=== PATIENT | female | born 2000 | race African-American/Black ===

== ENCOUNTER 2018-11-25 15:57 | Emergency (ER) | payer OTHER, MEDICAID ==
--- NOTE | 2018-11-25 16:45 | ED ---
Abdominal Pain/Female - HPI Summary HPI Summary: 18 year old F presenting to [facility] from [facility] complains of worsening waxing and waning epigastric abdominal pain since Wednesday11/20/18. Patient states that the pain started as dull and has progressed to sharp and stabbing. The patient rates the pain 8/10 in severity. Patient reports decreased appetite since Wednesday11/23/18. Patient denies nausea, dysuria, abnormal bowel movements. Symptoms aggravated by walking around and walking too fast. Symptoms alleviated by nothing. Patient was seen by Dr. Marcelino at [facility] and referred to ED. Patient states she was diagnosed with diabetes in 2012 for which she takes metformin. - History of Current Complaint Chief Complaint: EDAbdPain Stated Complaint: ABDOMINAL AND BACK PAIN PER PT Time Seen by Provider: 11/25/18 16:23 Hx Obtained From: Patient Onset/Duration: Lasting Days - 5, Still Present Severity Currently: Severe Pain Intensity: 8 Pain Scale Used: 0-10 Numeric Location: Epigastric Character: Sharp, Dull Aggravating Factor(s): Other: - walking around and walking too fast Alleviating Factor(s): Nothing Associated Signs and Symptoms: Positive: Negative - nausea, dysuria, abnormal bowel movements, Other: - decreased appetite Allergies/Adverse Reactions: Allergies Allergy/AdvReac Type Severity Reaction Status Date / Time No Known Allergies Allergy Verified 11/25/18 19:16 Home Medications: Home Medications Ranitidine TAB (NF) [Zantac TAB (NF)] 150 mg PO BID 11/25/18 [History Confirmed 11/25/18] metFORMIN* [Glucophage 850 MG TAB *] 850 mg PO BID 11/25/18 [History Confirmed 11/25/18] PMH/Surg Hx/FS Hx/Imm Hx Endocrine/Hematology History: Reports: Hx Diabetes Musculoskeletal History: Reports: 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 Negative: Nausea Negative: dysuria All Other Systems Reviewed And Are Negative: Yes Physical Exam - Summary Physical Exam Summary: Appearance: The patient is well-nourished in no acute distress and in no acute pain. Skin: The skin is warm and dry, and skin color reflects adequate perfusion. HEENT: The head is normocephalic and atraumatic. The pupils are equal and reactive. The conjunctivae are clear and without drainage. Nares are patent and without drainage. Mouth reveals moist mucous membranes, and the throat is without erythema and exudate. The external ears are intact. The ear canals are patent and without drainage. The tympanic membranes are intact. Neck: The neck is supple with full range of motion and non-tender. There are no carotid bruits. There is no neck vein distension. Respiratory: Chest is non-tender. Lungs are clear to auscultation and breath sounds are symmetrical and equal. Cardiovascular: Heart is regular rate and rhythm. There is no murmur or rub auscultated. There is no peripheral edema and pulses are symmetrical and equal. Abdomen: The abdomen is soft. There is mild epigastric tenderness. There are normal bowel sounds heard in all four quadrants and there is no organomegaly palpated. Musculoskeletal: There is no back tenderness noted. Extremities are non-tender with full range of motion. There is good capillary refill. There is no peripheral edema or calf tenderness elicited. Neurological: Patient is alert and oriented to person, place and time. The patient has symmetrical motor strength in all four extremities. Cranial nerves are grossly intact. Deep tendon reflexes are symmetrical and equal in all four extremities. Psychiatric: The patient has an appropriate affect and does not exhibit any anxiety or depression. Triage Information Reviewed: Yes Vital Signs On Initial Exam: Initial Vitals Temp Pulse Resp BP Pulse Ox 97.9 F 100 20 128/78 98 11/25/18 16:00 11/25/18 16:00 11/25/18 16:00 11/25/18 16:00 11/25/18 16:00 Vital Signs Reviewed: Yes Diagnostics - Vital Signs Vital Signs Temp Pulse Resp BP Pulse Ox 11/25/18 16:00 97.9 F 100 20 128/78 98 - Laboratory Result Diagrams: 11/25/18 17:10 11/25/18 17:10 Lab Statement: Any lab studies that have been ordered have been reviewed, and results considered in the medical decision making process. - Ultrasound Gallbladder Ultrasound Interpretation Completed By: Radiologist Summary of Ultrasound Findings: 1. No acute findings. No shadowing gallstones. 2. Pancreas obscured by bowel gas. 3. Hepatic steatosis. 4. No hydronephrosis. Suboptimal visualization of lower pole of right kidney. 4. Limited study as above. ED physician has reviewed this report. Re-Evaluation - Re-Evaluation First Eval Re-Evaluation Time: 19:28 Comment: patient updated on plan of care Abdominal Pain Fem Course/Dx - Course Course Of Treatment: Ms. Brunson presented with about a week of waxing and waning epigastric pain. She went to [facility] services today and as she is diabetic and her fingersticks were reading high and was recommended she come to the emergency department. She had some mild epigastric tenderness as well as right upper quadrant tenderness. Labs were obtained and were unremarkable, she was nontoxic in appearance and her vitals were stable. I recommended that we treat her and have her follow-up but she requested an ultrasound. Ultrasound of her gallbladder was a reasonable test even though her labs were normal but did return negative. I recommended we give her some pain medicine but she left the department prior to receiving it. - Diagnoses Provider Diagnoses: Abdominal pain Discharge ED - Sign-Out/Discharge Documenting (check all that apply): Patient Departure - elopement Patient Received Moderate/Deep Sedation with Procedure: No - Discharge Plan Condition: Stable Disposition: ELOPEMENT Prescriptions: traMADol TAB* [Ultram*] 50 mg PO Q6HR PRN #20 tab MDD 4 PRN Reason: Pain Patient Education Materials: Abdominal Pain (ED) Referrals: [facility] [Outside] - 2 Days Additional Instructions: Follow up with [facility] in 2-3 days. RETURN TO EMERGENCY DEPARTMENT FOR NEW OR WORSENING SYMPTOMS. - Billing Disposition and Condition Condition: STABLE Disposition: Elopement - Attestation Statements Document Initiated by Scribe: Yes Documenting Scribe: Elodia Brewer Provider For Whom Scribe is Documenting (Include Credential): Javid Santiago MD Scribe Attestation: Elodia Jean, scribed for Javid Santiago MD on 11/25/18 at 2122. Scribe Documentation Reviewed: Yes Provider Attestation: The documentation as recorded by the scribe, Elodia Brewer accurately reflects the service I personally performed and the decisions made by me, Javid Santiago MD Status of Bernard Document: Viewed
[2018-11-25 17:25] LABS: ABS Eosinophils 0.1 10^3/ul (0-0.6); ABS Lymphocytes 1.9 10^3/ul (1.0-4.8); ABS Monocytes 0.4 10^3/ul (0-0.8); ABS Neutrophils 5.2 10^3/ul (1.5-7.7); Eosinophil % 1.3 %; Hematocrit 35 % (35-47); Hemoglobin 11.1 g/dL (12.0-16.0); Lymphocyte % 24.9 %; Mean Corpuscular HGB Conc 32 g/dL (31-36); Mean Corpuscular Hemoglobin 21 pg (27-31); Mean Corpuscular Volume 66 fL (80-97); Mean Platelet Volume 9.5 fL (7.4-10.4); Platelet Count 250 10^3/uL (150-450); Red Blood Count 5.33 10^6 /uL (3.70-4.87); Red Cell Distribution Width 18 % (10-15); White Blood Count 7.7 10^3/uL (3.5-10.8)
[2018-11-25 17:34] LABS: ALT 9 U/L (7-52); AST 12 U/L (13-39); Albumin 3.8 g/dL (3.2-5.2); Alkaline Phosphatase 62 U/L (34-104); Anion Gap 7 mmol/L (2-11); BUN/Creatinine Ratio 12.1 (8-20); Blood Urea Nitrogen 8 mg/dL (6-24); C Reactive Protein 33.72 mg/L (<8.01); CO2 Carbon Dioxide 27 mmol/L (22-32); Chloride 100 mmol/L (101-111); EGFR African American 138.2 (>60); EGFR Non-African American 114.2 (>60); Globulin 3.7 g/dL (2-4); Glucose 267 mg/dL (70-100); Potassium 3.7 mmol/L (3.5-5.0); Sodium 134 mmol/L (135-145); Total Protein 7.5 g/dL (6.4-8.9)
[2018-11-25 17:39] LABS: HCG Pregnancy < 0.60 mIU/mL
[2018-11-25 17:47] LABS: Microcytosis 2+
[2018-11-25 18:42] VITALS: BP 112/69
[2018-11-25 19:16] LABS: Urine Appearance Cloudy; Urine Bacteria 3+ (Absent); Urine Bilirubin Negative (Negative); Urine Blood 1+ (Negative); Urine Color Yellow; Urine Glucose 3+(>=500 mg/dL) (Negative); Urine Ketones 1+ (Negative); Urine Nitrite Negative (Negative); Urine Protein 1+(30 mg/dL) (Negative); Urine Red Blood Cell 3+(>10/hpf) (Absent); Urine Specific Gravity 1.026 (1.010-1.030); Urine Squamous Epithelial Cell Present (Absent); Urine Urobilinogen Negative (Negative); Urine White Blood Cell 3+(>20/hpf) (Absent)
[2018-11-25] MEDS ORDERED: traMADol TAB* 50 MG PO ONE (20:54)
== END 2018-11-25 20:57 | disposition left against medical advice (07) ==
LOC: ED 15:57
DX: R10.9 Unspecified abdominal pain (principal); E11.9 Type 2 diabetes mellitus without complications; K76.0 Fatty (change of) liver, not elsewhere classified; Z79.899 Other long term (current) drug therapy
CPT/HCPCS: 36415; 76705; 80053; 81003; 81015; 83605; 83690; 84702; 85025; 85060; 86140; 87086; 99283

== ENCOUNTER 2018-11-26 18:30 | Emergency (ER) | payer OTHER, MEDICAID ==
[2018-11-26] MEDS ORDERED: NS 0.9% 1000 ML** 1,000 ML IV ONE (19:24)
[2018-11-26] MEDS ORDERED: Ketorolac INJ* 15 MG/ML 1 ML VIAL IV ONE (19:24)
[2018-11-26] MEDS ORDERED: Ondansetron INJ* 2 MG/ML VIAL IV ONE (19:24)
[2018-11-26] MEDS ORDERED: Pantoprazole IV* 40 MG IV ONE (19:24)
--- NOTE | 2018-11-26 19:28 | ED ---
Abdominal Pain/Female - HPI Summary HPI Summary: The pt is a 18 yr old female presenting to [facility] c/o upper abd and epigastric pain beginning 1 week [employer]. She notes that she was on her menstrual period when the pain began but that it persisted after her period ended. The pain is constant but its severity fluctuates throughout the day. The abd pain also radiates to her back and she rates her current pain severity a 10/10. She was seen at [facility] yesterday and had a negative gallbladder workup, but notes that she is still in pain and has difficulty standing. She notes that sleeping and ibuprofen alleviate the pain and took one ibuprofen earlier today. Eating aggravates the pain and she notes that eating noodles earlier today worsened her symptoms. She also reports nausea but denies any vomiting, diarrhea, or dysuria. She has Hx of DM and Anemia. Home Medications Medication Instructions Recorded Confirmed Type Ranitidine TAB (NF) [Zantac TAB 150 mg PO BID 11/25/18 11/25/18 History (NF)] metFORMIN* [Glucophage 850 MG TAB 850 mg PO BID 11/25/18 11/25/18 History *] traMADol TAB* [Ultram*] 50 mg PO Q6HR PRN #20 tab MDD 4 11/25/18 Rx - History of Current Complaint Chief Complaint: EDAbdPain Stated Complaint: ABD PAIN PER PT Time Seen by Provider: 11/26/18 19:14 Hx Obtained From: Patient Hx Last Menstrual Period: 11/19/2018 Onset/Duration: Sudden Onset, Lasting Weeks, Still Present Timing: Constant Severity Initially: Severe Severity Currently: Severe Pain Intensity: 10 Pain Scale Used: 0-10 Numeric Location: Discrete At: RUQ, Discrete At: LUQ, Epigastric Radiates to: Back Aggravating Factor(s): Food Alleviating Factor(s): Other: - ibuprofen, sleep Associated Signs and Symptoms: Positive: Nausea, Other: - pos - abd pain, neg - dysuria. 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 Negative: Vomiting, Diarrhea Negative: dysuria All Other Systems Reviewed And Are Negative: Yes Physical Exam - Summary Physical Exam Summary: General: Well-developed, Well-nourished, Obese female. No acute distress. HEENT: Normocephalic, Atraumatic. Eyes: Conjuctiva normal, PERRL. Ears: TMs within normal limits. Nares: (-) discharge, (-) erythema. Oropharynx: Clear, mucous membranes moist, (-) exudates. Neck: Soft, FROM, (-) lymphadenopathy, (-) thyromegaly, (-) JVD. Cardiovascular: Normal sinus rhythm, (-) murmur. Lungs: Clear to auscultation bilaterally (-) wheezes, (-) rales, (-) rhonchi. Abdomen: Soft, mild tenderness in LUQ and RUQ, moderate tenderness in the epigastric region, non-distended, (-) organomegaly, normal bowel sounds. Back: (-) CVA tenderness Extremities: No edema. Skin: Warm, dry, (-) rash. Neuro: Alert and oriented x3, no focal deficits. Psychiatric: Mood normal, affect normal. Triage Information Reviewed: Yes Vital Signs On Initial Exam: Initial Vitals Temp Pulse Resp BP Pulse Ox 97.4 F 106 20 122/86 100 11/26/18 18:32 11/26/18 18:32 11/26/18 18:32 11/26/18 18:32 11/26/18 18:32 Vital Signs Reviewed: Yes Diagnostics - Vital Signs Vital Signs Temp Pulse Resp BP Pulse Ox 11/26/18 18:32 97.4 F 106 20 122/86 100 - Laboratory Result Diagrams: 11/26/18 19:34 11/26/18 19:34 Lab Statement: Any lab studies that have been ordered have been reviewed, and results considered in the medical decision making process. - CT CT A/P CT Interpretation Completed By: Radiologist Summary of CT Findings: Impression: Negative CT Abdomen/Pelvis. ED Physician has reviewed this report. Re-Evaluation - Re-Evaluation First Eval Re-Evaluation Time: 22:00 Comment: I have discussed results with the patient and (Sx) is resolved. Discussed symptoms that warrant immediate return to ED. Abdominal Pain Fem Course/Dx - Course Course Of Treatment: The pt is a 18 yr old female presenting to [facility] c/o upper abd and epigastric pain beginning 1 week [employer]. She also reports nausea but denies any vomiting, diarrhea, or dysuria. Test results normal except for RBC 5.28, Hgb 11.2, MCV 66, MCH 21, RDW 18, Sodium 133, Chloride 100, Glucose 329, AST 12, CRP 47.04, Lipase 83, 1+ Urine Ketones, 2+ Ur Leukocyte Esterase, 1+ Urine WBC, Ur Squamous Epith Cells present, and 3+ Urine Glucose. A CT A/P reveals: negative CT Abdomen/Pelvis. In the ED course pt was given 1000 mls fluids IV, 15 mg Toradol IV, 4 mg Zofran IV, 141 ml Visipaque IV, and 40 mg Protonix IV. Final Dx is epigastric pain. Pt will be discharged home with PCP follow up. Pt is agreeable with this plan. - Diagnoses Provider Diagnoses: Epigastric pain Discharge ED - Sign-Out/Discharge Documenting (check all that apply): Patient Departure - discharge Patient Received Moderate/Deep Sedation with Procedure: No - Discharge Plan Condition: Stable Disposition: HOME Prescriptions: Omeprazole 20 mg PO DAILY 30 Days #30 capsule. Patient Education Materials: Epigastric Pain (ED) Referrals: [facility] [Outside] - 3 Days Additional Instructions: Please take 2 Ibuprofen 3 times per day with food for pain management. Please take your Omeprazole once daily in the morning prior to any food. Please follow up with your primary care physician within three days. Please return to ED for any new or worsening symptoms. - Billing Disposition and Condition Condition: STABLE Disposition: Home - Attestation Statements Document Initiated by Scribe: Yes Documenting Scribe: Vazquez Fernández Provider For Whom Scribe is Documenting (Include Credential): Radhika Chahal MD Scribe Attestation: Vazquez Jean, scribed for Radhika Chahal MD on 11/26/18 at 2242. Scribe Documentation Reviewed: Yes Provider Attestation: The documentation as recorded by the scribe, Vazquez Fernández accurately reflects the service I personally performed and the decisions made by me, Radhika Chahal MD Status of Scribe Document: Viewed
[2018-11-26 19:46] LABS: ABS Eosinophils 0.1 10^3/ul (0-0.6); ABS Lymphocytes 1.8 10^3/ul (1.0-4.8); ABS Monocytes 0.6 10^3/ul (0-0.8); ABS Neutrophils 6.8 10^3/ul (1.5-7.7); Eosinophil % 1.2 %; Hematocrit 35 % (35-47); Hemoglobin 11.2 g/dL (12.0-16.0); Lymphocyte % 18.9 %; Mean Corpuscular HGB Conc 32 g/dL (31-36); Mean Corpuscular Hemoglobin 21 pg (27-31); Mean Corpuscular Volume 66 fL (80-97); Mean Platelet Volume 9.6 fL (7.4-10.4); Nucleated Red Blood Cells % 0.1; Platelet Count 246 10^3/uL (150-450); Red Blood Count 5.28 10^6 /uL (3.70-4.87); Red Cell Distribution Width 18 % (10-15); White Blood Count 9.3 10^3/uL (3.5-10.8)
[2018-11-26 19:58] LABS: ALT 9 U/L (7-52); AST 12 U/L (13-39); Albumin 3.8 g/dL (3.2-5.2); Albumin/Globulin Ratio 1.1 (1-3); Alkaline Phosphatase 60 U/L (34-104); Amylase 51 U/L (29-103); Anion Gap 7 mmol/L (2-11); Blood Urea Nitrogen 9 mg/dL (6-24); C Reactive Protein 47.04 mg/L (<8.01); CO2 Carbon Dioxide 26 mmol/L (22-32); Chloride 100 mmol/L (101-111); EGFR African American 131.2 (>60); EGFR Non-African American 108.5 (>60); Globulin 3.6 g/dL (2-4); Glucose 329 mg/dL (70-100); Potassium 3.8 mmol/L (3.5-5.0); Sodium 133 mmol/L (135-145); Total Protein 7.4 g/dL (6.4-8.9)
[2018-11-26 20:04] LABS: HCG Pregnancy < 0.60 mIU/mL
[2018-11-26] MEDS ORDERED: Iodixanol* (CONTRAST) 320 MG/ML 100 ML SDV IV ONE (20:08)
[2018-11-26 20:30] LABS: Urine Appearance Cloudy; Urine Bacteria 1+ (Absent); Urine Bilirubin Negative (Negative); Urine Blood Negative (Negative); Urine Color Yellow; Urine Glucose 3+(>=500 mg/dL) (Negative); Urine Ketones 1+ (Negative); Urine Nitrite Negative (Negative); Urine Protein Negative (Negative); Urine Red Blood Cell Trace(0-2/hpf) (Absent); Urine Specific Gravity 1.013 (1.010-1.030); Urine Squamous Epithelial Cell Present (Absent); Urine Urobilinogen Negative (Negative); Urine White Blood Cell 1+(6-10/hpf) (Absent)
[2018-11-26 23:27] VITALS: BP 110/79
== END 2018-11-26 23:00 | disposition home or self-care (01) ==
LOC: ED 18:30
DX: R10.13 Epigastric pain (principal); Z79.899 Other long term (current) drug therapy
CPT/HCPCS: 36415; 74177; 80053; 81003; 81015; 82150; 83605; 83690; 84702; 85025; 86140; 87086; 96361; 96374; 96375; 99284; J1885; J2405; Q9967

== ENCOUNTER 2018-11-27 11:53 | Emergency (ER) | payer OTHER, MEDICAID ==
--- NOTE | 2018-11-27 12:02 | ED ---
HPI Chest Pain - HPI Summary HPI Summary: This pt is a 18 Y/O F presenting to [facility] with a CC of chest pain. She states that she started having symptoms last week on 11/20/18. She states that she had back pain that radiated into her abdomen and was present in the ED for a possible gallbladder infection. She states that the pain was worse yesterday and is described as sharp. She states that the pain is located in her left upper quadrant and her left anterior chest. She states that when she was brushing her teeth this morning she thought she coughed up blood. She states that she has increased pain with movement. She denies any fevers, SOB, N/V, new edema, and headaches. She states the pain is worse after eating, relieved with intermittent movement. She has a PMHx of DM and takes metformin which she started one week ago. Patient states the pain started before taking metformin. - History of Current Complaint Chief Complaint: EDChestPainROMI Hx Obtained From: Patient Hx Last Menstrual Period: 11/19/2018 Onset/Duration: Started Weeks Ago - 1, Still Present, Worse Since - 11/26/18 Timing: Constant Initial Severity: Mild Current Severity: Moderate Pain Intensity: 5 Pain Scale Used: 0-10 Numeric Chest Pain Location: Left Anterior Chest Pain Radiates: Yes Chest Pain Radiates To:: Other - LUQ of abdomen Character: Sharp/Stabbing Aggravating Factor(s): Nothing Alleviating Factor(s): Nothing Associated Signs and Symptoms: Positive: Chest Pain - LA, Hemoptysis, Abdominal Pain - LUQ. 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 Negative: Shortness Of Breath Positive: Abdominal Pain - LUQ. Negative: Vomiting, Nausea Negative: Edema Negative: Headache All Other Systems Reviewed And Are Negative: Yes Physical Exam - Summary Physical Exam Summary: Constitutional: Well-developed, obese, Alert. (-) Distressed Skin: Warm, Dry HENT: Normocephalic; Atraumatic Eyes: Conjunctiva normal Neck: Musculoskeletal ROM normal neck. (-) JVD, (-) Stridor, (-) Nuchal rigidity Cardio: Rhythm regular, rate normal, Heart sounds normal; Intact distal pulses; Radial pulses are 2+ and symmetric. (-) Murmur Pulmonary/Chest wall: Effort normal. (-) Respiratory distress, (-) Wheezes, (-) Rales Abd: Soft, (-) tenderness, (-) Distension, (-) Guarding, (-) Rebound Musculoskeletal: (-) Edema Lymph: (-) Cervical adenopathy Neuro: Alert, Oriented x3 Psych: Mood and affect Normal Triage Information Reviewed: Yes Vital Signs On Initial Exam: Vital Signs (72 hours) 11/27/18 12:01 Temperature 97.7 F Pulse Rate 105 Respiratory 18 Rate Blood Pressure 140/67 (mmHg) O2 Sat by Pulse 100 Oximetry Vital Signs Reviewed: Yes Diagnostics - Laboratory Result Diagrams: 11/27/18 12:25 11/27/18 12:25 Lab Statement: Any lab studies that have been ordered have been reviewed, and results considered in the medical decision making process. - Radiology CXR Radiology Interpretation Completed By: Radiologist Summary of Radiographic Findings: No evidence for intrathoracic diseases. ED physician has reviewed this report. - EKG 1157 Cardiac Rate: NL - 99 BPM EKG Rhythm: Sinus Rhythm ST Segment: Normal Ectopy: None Summary of EKG Findings: An EKG at 1157 reveals normal sinus rhythm 99 BPM, nml axis, nml intervals. No STEMI. No acute changes. Interpreted by Dr. Rojas at 1159 11/27/18. Re-Evaluation - Re-Evaluation First Eval Re-Evaluation Time: 13:26 Change: Unchanged Comment: Pt is still compalaining of pain. She will be administered Scurafate. Second Eval Re-Evaluation Time: 02:45 Comment: Patient feeling improved after medications. D/w her normal results and that shelli we dont have a cause for her pain, there is not an emergent workup needed. She was given GI follow up. NAD on discharge. Chest Pain Course/Dx - Course Course Of Treatment: 18-year-old female with a history of diabetes on metformin presents with worsening abdominal pain for 1 week. - Work up so far includes negative RUQ ultrasound without gallstones/CBD dilation. Negative CT of the abdomen and pelvis 1 day ago. Patient reports persistent pain, including lower chest wall pain as well as cough. No chest x-ray, d-dimer to rule out PE (Well' s low risk). Unclear source of abdominal pain. DDx includes pancreatitis, GERD , renal stone, Cholecystitis, Less likely SBO, ectopic, PID, ovarian torsion, fibroids. Exam relatively unremarkable today, no rigidity or suggestions of acute surgical abd. Pt with negative Durham's on exam. Lipase to evaluate for pancreatitis. Will obtain cbc to assess for underlying infection. Neg preg test yesterday. Less likely ovarian torsion given location of pain and no focal TTP on exam. Pt denies pelvic pain and vaginal discharge, also with no fever, so less likely PID. Will obtain UA to assess for UTI. Will continue to monitor - Diagnoses Provider Diagnoses: Abdominal pain, Chest pain Discharge ED - Sign-Out/Discharge Documenting (check all that apply): Patient Departure - discharge Patient Received Moderate/Deep Sedation with Procedure: No - Discharge Plan Condition: Stable Disposition: HOME Prescriptions: traMADol TAB* [Ultram*] 25 mg PO Q8H PRN 2 Days #6 tab MDD 4 PRN Reason: Pain - Severe Patient Education Materials: Acute Abdominal Pain (ED) Referrals: Henry Morgan MD [Medical Doctor] - 1 Week Additional Instructions: You were seen in the emergency department for abdominal and chest pain. Your labs did not suggest any abnormalities of your gallbladder, chest x-ray is normal, your EKG was normal. Your lab test for blood clots was negative. Please follow up with GI. If any studies were not completed at the time of discharge you will be called with the relevant results. Please follow up with your primary care doctor in next 2-3 days and return to emergency department for worsening or concerning symptoms. It was a pleasure taking care of you today. - Billing Disposition and Condition Condition: STABLE Disposition: Home - Attestation Statements Document Initiated by Scribe: Yes Documenting Scribe: Chase Canela Provider For Whom Marielosibe is Documenting (Include Credential): Evelyn Rojas MD Scribe Attestation: IChase, scribed for Evelyn Rojas MD on 11/27/18 at 1514. Scribe Documentation Reviewed: Yes Provider Attestation: The documentation as recorded by the Chase fagan accurately reflects the service I personally performed and the decisions made by , Evelyn Rojas MD Status of Scribe Document: Viewed
[2018-11-27 12:36] LABS: ABS Basophils 0.1 10^3/ul (0-0.2); ABS Eosinophils 0.1 10^3/ul (0-0.6); ABS Lymphocytes 1.6 10^3/ul (1.0-4.8); ABS Monocytes 0.5 10^3/ul (0-0.8); Hematocrit 35 % (35-47); Hemoglobin 11.1 g/dL (12.0-16.0); Lymphocyte % 18.8 %; Mean Corpuscular HGB Conc 31 g/dL (31-36); Mean Corpuscular Hemoglobin 21 pg (27-31); Mean Corpuscular Volume 66 fL (80-97); Mean Platelet Volume 9.3 fL (7.4-10.4); Nucleated Red Blood Cells % 0.1; Platelet Count 257 10^3/uL (150-450); Red Blood Count 5.33 10^6 /uL (3.70-4.87); Red Cell Distribution Width 18 % (10-15); White Blood Count 8.2 10^3/uL (3.5-10.8)
[2018-11-27 12:39] LABS: INR 1.19 (0.82-1.09)
[2018-11-27] MEDS ORDERED: Lidocaine 2% VISCOUS* 15 ML UDC PO ONE (12:40)
[2018-11-27] MEDS ORDERED: Al Hydrox/Mg Hydrox/Simet LIQ* 30 ML UDC PO ONE (12:40)
[2018-11-27 12:51] LABS: Albumin 3.8 g/dL (3.2-5.2); Albumin/Globulin Ratio 1.1 (1-3); BUN/Creatinine Ratio 10.9 (8-20); Calcium 8.9 mg/dL (8.6-10.3); EGFR African American 143.1 (>60); EGFR Non-African American 118.3 (>60); Globulin 3.6 g/dL (2-4); Potassium 3.9 mmol/L (3.5-5.0); Total Bilirubin 0.4 mg/dL (0.2-1.0); Total Protein 7.4 g/dL (6.4-8.9)
[2018-11-27] MEDS ORDERED: Dicyclomine CAP* 10 MG PO ONE (13:08)
[2018-11-27] MEDS ORDERED: traMADol TAB* 50 MG PO ONE ×2 (13:47→14:48)
[2018-11-27] MEDS ORDERED: Sucralfate SUSP 1 GM/10 ml 10 ML UDC PO SCH (14:00)
[2018-11-27 14:58] VITALS: BP 138/72
== END 2018-11-27 14:57 | disposition home or self-care (01) ==
LOC: ED 11:53
DX: R07.9 Chest pain, unspecified (principal); R10.9 Unspecified abdominal pain; E11.9 Type 2 diabetes mellitus without complications; Z79.84 Long term (current) use of oral hypoglycemic drugs; Z79.899 Other long term (current) drug therapy
CPT/HCPCS: 36415; 71046; 80053; 83690; 84484; 85025; 85379; 85610; 93005; 99282; A9270-GY

== ENCOUNTER 2018-11-30 16:48 | Observation (INO) | payer OTHER, MEDICAID ==
--- NOTE | 2018-11-30 18:42 | ED ---
Abdominal Pain/Female - HPI Summary HPI Summary: Patient complains of epigastric pain, N/V, unable to eat or drink in 5 days, no bowel movement in 4 days. Patient has history of ulcer. Waiting on appointment for GI in 2 weeks. This is patient's fourth visit in 5 days for same symptoms. Patient states GI cocktail caused more pain on last visit. Patient throws up after sucralfate. Patient states she throws up after by mouth omeprazole. Denies fever, cough, sore throat, CP, SOB, diarrhea, urine symptoms, vaginal symptoms. Denies medical history except for ulcer disease. Abdominal surgical history is none. - History of Current Complaint Chief Complaint: EDAbdPain Stated Complaint: ABDOMINAL PAIN PER PT Time Seen by Provider: 11/30/18 18:38 Hx Obtained From: Patient Hx Last Menstrual Period: 11/19/2018 Onset/Duration: Gradual Onset, Lasting Days Timing: Constant Severity Initially: Severe Severity Currently: Severe Pain Intensity: 8 Pain Scale Used: 0-10 Numeric Location: Discrete At: RUQ, Epigastric Radiates: No Character: Sharp, Burning Aggravating Factor(s): Food Alleviating Factor(s): Nothing Associated Signs and Symptoms: Positive: Decreased Appetite, Nausea, Vomiting Allergies/Adverse Reactions: Allergies Allergy/AdvReac Type Severity Reaction Status Date / Time No Known Allergies Allergy Verified 11/26/18 18:35 Home Medications: Home Medications metFORMIN* [Glucophage 850 MG TAB *] 850 mg PO BID 11/30/18 [History Confirmed 11/30/18] PMH/Surg Hx/FS Hx/Imm Hx Endocrine/Hematology History: Reports: Hx Diabetes Cardiovascular History: Denies: Hx Pacemaker/ICD History: Denies: Hx Dialysis Musculoskeletal History: Reports: Other Musculoskeletal History - [place]'s disease left leg Sensory History: Denies: Hx Eye Prosthesis Opthamlomology History: Denies: Hx Legally Blind EENT History: Denies: Hx Deafness Neurological History: Denies: Hx Dementia - Surgical History Surgery Procedure, Year, and Place: left leg surgery x6 Infectious Disease History: No Infectious Disease History: Denies: Traveled Outside the [place] in Last 30 Days - Family History Known Family History: Positive: Hypertension, Diabetes Negative: Cardiac Disease - Social History Alcohol Use: None Hx Substance Use: No Substance Use Type: Reports: None Hx Tobacco Use: No Smoking Status (MU): Never Smoked Tobacco Review of Systems Constitutional: Negative Eyes: Negative ENT: Negative Cardiovascular: Negative Respiratory: Negative Positive: Abdominal Pain, Vomiting, Nausea Genitourinary: Negative Musculoskeletal: Negative Skin: Negative Neurological: Negative Psychological: Normal All Other Systems Reviewed And Are Negative: Yes Physical Exam - Summary Physical Exam Summary: Tender to palpation in all upper quadrants. Abdominal exam otherwise unremarkable. Triage Information Reviewed: Yes Vital Signs On Initial Exam: Initial Vitals Temp Pulse Resp BP Pulse Ox 97.9 F 104 15 128/84 100 11/30/18 16:59 11/30/18 16:59 11/30/18 16:59 11/30/18 16:59 11/30/18 16:59 Vital Signs Reviewed: Yes Appearance: Positive: Well-Appearing Skin: Positive: Warm Head/Face: Positive: Normal Head/Face Inspection Eyes: Positive: Normal Neck: Positive: Supple Respiratory/Lung Sounds: Positive: Clear to Auscultation Cardiovascular: Positive: Normal Abdomen Description: Positive: Other: Musculoskeletal: Positive: Normal Neurological: Positive: Normal Psychiatric: Positive: Normal AVPU Assessment: Alert - Kirt Coma Scale Best Eye Response: 4 - Spontaneous Best Motor Response: 6 - Obeys Commands Best Verbal Response: 5 - Oriented Coma Scale Total: 15 Diagnostics - Vital Signs Vital Signs Temp Pulse Resp BP Pulse Ox 11/30/18 16:59 97.9 F 104 15 128/84 100 - Laboratory Result Diagrams: 12/02/18 11:53 12/01/18 05:47 Lab Statement: Any lab studies that have been ordered have been reviewed, and results considered in the medical decision making process. Abdominal Pain Fem Course/Dx - Course Course Of Treatment: Patient complains of epigastric pain, N/V, unable to eat or drink in 5 days, no bowel movement in 4 days. Patient has history of ulcer. Waiting on appointment for GI in 2 weeks. This is patient's fourth visit in 5 days for same symptoms. Patient states GI cocktail caused more pain on last visit. Patient throws up after sucralfate. Patient states she throws up after by mouth omeprazole. Denies fever, cough, sore throat, CP, SOB, diarrhea, urine symptoms, vaginal symptoms. Denies medical history except for ulcer disease. Abdominal surgical history is none. Vital signs within normal limits. Labs unremarkable. CT abdomen and pelvis on 11/26 negative. Gallbladder ultrasound on 11/25 negative. Chest x-ray on 11/27 negative. As this was patient's fourth visit in 5 days Discussed patient with Dr. Rik Kimbrough GI who recommended observation and scope tomorrow. Admitted to hospitalist. - Diagnoses Provider Diagnoses: Epigastric pain, Anorexia Discharge ED - Sign-Out/Discharge Documenting (check all that apply): Patient Departure Patient Received Moderate/Deep Sedation with Procedure: No - Discharge Plan Condition: Good Disposition: ADMITTED TO [facility] - Billing Disposition and Condition Condition: GOOD Disposition: Admitted to [facility] - Attestation Statements Provider Attestation: I agree w the JIMMIE documentation above. Briefly, 18 y/o F w DM and multiple presentations for abdominal pain, neg CT, RUQ US, labs. Still w persistent pain , labs notable for elevated CRP. Will d/w GI re: scope, admit. Evelyn Rojas MD
[2018-11-30 19:38] LABS: ABS Eosinophils 0.1 10^3/ul (0-0.6); ABS Lymphocytes 1.4 10^3/ul (1.0-4.8); ABS Monocytes 0.5 10^3/ul (0-0.8); ABS Neutrophils 5.1 10^3/ul (1.5-7.7); Eosinophil % 1.7 %; Hematocrit 35 % (35-47); Hemoglobin 11.1 g/dL (12.0-16.0); Lymphocyte % 19.1 %; Mean Corpuscular HGB Conc 31 g/dL (31-36); Mean Corpuscular Hemoglobin 21 pg (27-31); Mean Corpuscular Volume 67 fL (80-97); Mean Platelet Volume 9.6 fL (7.4-10.4); Nucleated Red Blood Cells % 0.2; Platelet Count 278 10^3/uL (150-450); Red Blood Count 5.28 10^6 /uL (3.70-4.87); Red Cell Distribution Width 18 % (10-15); White Blood Count 7.2 10^3/uL (3.5-10.8)
[2018-11-30] MEDS ORDERED: Ketorolac INJ* 30 MG/ML 1 ML VIAL IV ONE (19:40)
[2018-11-30 19:46] LABS: ALT 8 U/L (7-52); AST 10 U/L (13-39); Albumin 3.8 g/dL (3.2-5.2); Albumin/Globulin Ratio 0.9 (1-3); Alkaline Phosphatase 55 U/L (34-104); Anion Gap 11 mmol/L (2-11); BUN/Creatinine Ratio 14.8 (8-20); Blood Urea Nitrogen 9 mg/dL (6-24); C Reactive Protein 87.65 mg/L (<8.01); CO2 Carbon Dioxide 18 mmol/L (22-32); Calcium 8.8 mg/dL (8.6-10.3); Chloride 104 mmol/L (101-111); EGFR African American 151.3 (>60); Globulin 4.3 g/dL (2-4); Glucose 201 mg/dL (70-100); Potassium 3.8 mmol/L (3.5-5.0); Sodium 133 mmol/L (135-145); Total Protein 8.1 g/dL (6.4-8.9)
[2018-11-30 19:52] LABS: HCG Pregnancy < 0.60 mIU/mL
[2018-11-30 20:05] LABS: Urine Appearance Cloudy; Urine Bacteria 1+ (Absent); Urine Bilirubin Negative (Negative); Urine Blood Negative (Negative); Urine Color Yellow; Urine Glucose 1+(50 mg/dL) (Negative); Urine Ketones 2+ (Negative); Urine Nitrite Negative (Negative); Urine Protein 2+(100 mg/dL) (Negative); Urine Red Blood Cell 1+(3-5/hpf) (Absent); Urine Specific Gravity 1.028 (1.010-1.030); Urine Squamous Epithelial Cell Present (Absent); Urine Urobilinogen Negative (Negative); Urine White Blood Cell 1+(6-10/hpf) (Absent)
[2018-11-30] MEDS ORDERED: Pantoprazole IV* 40 MG IV ONE (20:20)
[2018-11-30] MEDS ORDERED: NS 0.9% 1000 ML** 1,000 ML IV ONE (20:21)
[2018-11-30] MEDS ORDERED: Ondansetron INJ* 2 MG/ML VIAL IV PRN (21:01)
[2018-11-30] MEDS: NS 0.9% 1000 ML** 1,000 ML IV SCH (21:30)
--- NOTE | 2018-12-01 00:03 | HP ---
CC: Dr. Weston * ADMISSION HISTORY AND PHYSICAL: DATE OF ADMISSION: 11/30/18 CHIEF COMPLAINT: Epigastric pain. HISTORY OF PRESENT ILLNESS: This is a 18-year-old female with morbid obesity with BMI of 44; diabetes type 2, diagnosed in 2012, on metformin; history of Julia disease; peptic ulcer disease, diagnosed in 2013, comes in due to epigastric pain. The patient has had epigastric pain since 11/20/18 and has been having decreased appetite. Pain is sharp in nature, not similar to her previous episode of peptic ulcer disease which was diagnosed in 2013. She states that the pain gets worse with any kind of eating or drinking or even walking. She has had 20-pound weight loss in the last 10 days. She has been feeling constipated and had to use enema. Last enema use was yesterday which caused her to have a small bowel movement which was still hard and very difficult and painful. She otherwise denies any chest pain or shortness of breath. She has had 4 ER visits at [facility] and has had visits to the [facility] and other [facility] ERs as well but she was having no relief, so the ER discussed the case with Dr. Weston, who suggested admission for a possible EGD to rule out any ulcers causing the patient's significant pain and nausea. The patient otherwise offers no other complaints such as numbness, tingling, weakness, any fever, chills, any cough. 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 PAST SURGICAL HISTORY: As mentioned 6 surgeries to her left leg. HOME MEDICATIONS: The patient is currently on: 1. Glucophage 850 mg p.o. b.i.d. 2. Omeprazole 20 mg oral daily. ALLERGIES: No known drug allergies. FAMILY HISTORY: Mother alive at age 60, has hypertension. She is unsure about her father's history. SOCIAL HISTORY: The patient denies any smoking, alcohol, or drugs. She is currently studying at [employer]. REVIEW OF SYSTEMS: A 14-point review of systems did not reveal any new information, other than what is stated in the HPI. PHYSICAL EXAMINATION GENERAL: The patient is awake, alert, oriented x3, did not appear to be in any acute respiratory distress. VITAL SIGNS: In the ER, BP was noted to be 149/89, heart rate 104, respirations 18, saturating 96% on room air, temperature 97.6. HEAD AND NECK: Atraumatic, normocephalic. Bilateral pupils are reactive. Oral mucosa was moist. Neck is supple. No jugular venous distention LUNGS: Clear to auscultation bilaterally. No wheezing, rhonchi, or rales. HEART: S1, S2. Regular rate and rhythm. ABDOMEN: Soft with minimal tenderness in the epigastric area. EXTREMITIES: No cyanosis, clubbing, or edema. DIAGNOSTIC STUDIES/LAB DATA: CBC was unremarkable except for the mild anemia with a hemoglobin of 11.1, hematocrit of 35, MCV was low at 67. Comprehensive metabolic panel shows elevated random glucose of 201 and elevated C-reactive protein, but otherwise normal albumin and lipase. Urinalysis was 2+ protein, 2+ ketones, 1+ leuk esterase, but negative for any nitrites. She has had multiple testings done over the course of last week including an ultrasound of the gallbladder, which showed no acute findings. No shadowing gallstones, pancreas was obscured by bowel gas, hepatic steatosis, no hydronephrosis. CT abdomen and pelvis was also performed over the last week which showed negative CT abdomen and pelvis. Chest x-rays showed no evidence of acute intrathoracic disease. IMPRESSION: This is a 18-year-old female here with abdominal pain persistent for over 10 days with no relieving factors accompanied by nausea and vomiting, unclear etiology. GI consulted by ER, who suggested that the patient to be kept on clear liquids for possible endoscopy in the morning. ASSESSMENT: 1. Abdominal pain, unclear etiology for EGD in the morning, on clear liquids for now. 2. History of diabetes. We will start the patient on insulin sliding scale for now and we could restart the metformin once the EGD is performed and finished. The patient also has been suggested for weight loss and to follow up with an lye treater in the near future for better sugar control. 3. Isolated blood pressure elevation could be secondary to pain. We will measure repeat blood pressure measurements and consider starting the patient on BP medications. 4. Mild anemia, possibly iron deficiency given the decreased MCV and elevated RDW. We will get an iron panel with morning labs. 5. DVT prophylaxis. Encouraging early ambulation. [id number]/[facility] #: [id number] AMRIT
[2018-12-01] MEDS: Insulin LISPRO* 1 UNITS UNIT SUBCUT SCH ×5 (00:55→20:49)
[2018-12-01 06:12] LABS: ABS Eosinophils 0.1 10^3/ul (0-0.6); ABS Lymphocytes 1.2 10^3/ul (1.0-4.8); ABS Monocytes 0.5 10^3/ul (0-0.8); ABS Neutrophils 3.1 10^3/ul (1.5-7.7); Eosinophil % 2.8 %; Hematocrit 34 % (35-47); Hemoglobin 10.8 g/dL (12.0-16.0); Lymphocyte % 24.9 %; Mean Corpuscular HGB Conc 31 g/dL (31-36); Mean Corpuscular Hemoglobin 21 pg (27-31); Mean Corpuscular Volume 68 fL (80-97); Mean Platelet Volume 9.2 fL (7.4-10.4); Nucleated Red Blood Cells % 0.1; Platelet Count 234 10^3/uL (150-450); Red Blood Count 5.07 10^6 /uL (3.70-4.87); Red Cell Distribution Width 19 % (10-15); White Blood Count 4.9 10^3/uL (3.5-10.8)
[2018-12-01 06:36] LABS: Anion Gap 10 mmol/L (2-11); BUN/Creatinine Ratio 12.1 (8-20); Blood Urea Nitrogen 8 mg/dL (6-24); CO2 Carbon Dioxide 20 mmol/L (22-32); Calcium 8.9 mg/dL (8.6-10.3); Chloride 107 mmol/L (101-111); EGFR African American 138.2 (>60); EGFR Non-African American 114.2 (>60); Glucose 152 mg/dL (70-100); Potassium 3.8 mmol/L (3.5-5.0); Sodium 137 mmol/L (135-145)
[2018-12-01 06:38] LABS: Total Iron Binding Capacity 325 mcg/dL (250-450); Transferrin 232 mg/dL (203-362)
[2018-12-01 06:45] LABS: % Iron Saturation 6 % (15-55); Iron < 20 ug/dL (50-212)
[2018-12-01 06:59] LABS: Ferritin 26.2 ng/mL (11-307)
[2018-12-01 07:02] LABS: Folate > 20.00 ng/mL (>3.99)
[2018-12-01] MEDS: Pantoprazole IV* 40 MG IV SCH ×2 (08:52→20:47)
[2018-12-01] MEDS ORDERED: Midazolam* 1 MG/ML 10 ML VIAL (10 MG) ONE (15:07)
[2018-12-01] MEDS ORDERED: diPHENhydraMINE IV* 50 MG/ML 1 ml VIAL (BENADRYL) ONE (15:07)
[2018-12-01] MEDS ORDERED: fentaNYL* 50 MCG/ML 2 ML VIAL (100 MCG VIAL) ONE (15:07)
[2018-12-01] MEDS ORDERED: Metoclopramide IV* 5 MG/ML 2 ML VIAL IV PRN (16:59)
[2018-12-01] MEDS ORDERED: Ketorolac INJ* 30 MG/ML 1 ML VIAL IV PUSH PRN (17:00)
[2018-12-01] MEDS ORDERED: Morphine INJ* 2 MG/ML 1 ML SYRINGE (TWO MG - NEW SYRINGE VERSION) IV PRN (17:14)
[2018-12-01] MEDS: NS 0.9% 1000 ML** 1,000 ML IV SCH (17:17)
[2018-12-01] MEDS ORDERED: PEG 3000 GI LAVAGE* 1 GALLON PO ONE (17:32)
--- NOTE | 2018-12-01 19:38 | PN ---
Subjective Date of Service: 12/01/18 Interval History: Pt with mild epigastric pain that is associated with eating. Denies n/v. Last BM was Wednesday. She is recently back from EGD and is very tired. She has no other complaints today. Objective Active Medications: Sodium Chloride (Ns 0.9% 1000 Ml) 1,000 mls @ 125 mls/hr IV PER RATE REGAN Insulin Human Lispro (Humalog*) 0 units SUBCUT ACHS REGAN; Protocol Metoclopramide HCl (Reglan Iv*) 5 mg IV Q6H PRN Morphine Sulfate (Morphine Inj (Syringe))*) 1 mg IV Q2H PRN Ondansetron HCl (Zofran Inj*) 4 mg IV Q4H PRN Pantoprazole Sodium (Protonix Iv*) 40 mg IV Q12H REGAN Polyethylene Glycol/Electrolytes (Golytely*) 2,000 ml PO ONCE ONE Vital Signs: Temp Pulse Resp BP Pulse Ox 98.4 F 93 18 126/71 100 12/01/18 18:22 12/01/18 18:22 12/01/18 19:08 12/01/18 18:22 12/01/18 18:22 Oxygen Devices in Use Now: None Appearance: Pt is drowsy. She was easily, but drifts back to sleep frequently. She is in no acute distress. Eyes: No Scleral Icterus, PERRLA Ears/Nose/Mouth/Throat: NL Teeth, Lips, Gums, Clear Oropharnyx, Mucous Membranes Moist Neck: NL Appearance and Movements; NL JVP, Trachea Midline Respiratory: Symmetrical Chest Expansion and Respiratory Effort, Clear to Auscultation Cardiovascular: NL Sounds; No Murmurs; No JVD, RRR, No Edema Abdominal: No Hepatosplenomegaly, - - BS all quadrants. Tender to palpation at epigastric area only. No distention. Extremities: No Edema, No Clubbing, Cyanosis Skin: No Rash or Ulcers, No Nodules or Sclerosis Neurological: Alert and Oriented x 3 Result Diagrams: 12/02/18 11:53 12/01/18 05:47 Microbiology and Other Data: Microbiology 11/30/18 19:37 Urine Culture - Preliminary Urine Staphylococcus Aureus Assess/Plan/Problems-Billing Assessment: 18 yof PMHx DM, PUD presents with epigastric pain associated with eating. - Patient Problems (1) Epigastric pain Comment: -Pt with continued epigastric pain, n/v controlled; CRP 87.65 -EGD today -Plan for colonoscopy tomorrow -Continue pain management, nausea control -Continue pantoprazole (2) Diabetes mellitus Comment: -BS 150-210; HA1c pending -Home medication Metformin 850 BID on hold -Continue lispro ss (3) Anemia Comment: -Macrocytic anemia -Iron deficiency -Start PO iron when no longer NPO (4) DVT prophylaxis Comment: -Ambulation (5) Full code status Status and Disposition: Observation. Discharge when stable.
--- NOTE | 2018-12-01 19:56 | CONS ---
CC: [facility] * CONSULTATION REPORT: DATE OF CONSULT: 12/01/18 PRIMARY CARE PHYSICIAN: [facility]. REQUESTING PHYSICIAN: Dr. Mckeon. REASON FOR CONSULT: Epigastric pain, constipation. HISTORY OF PRESENT ILLNESS: This is a 18-year-old female, [employer] student, with a history of morbid obesity; diabetes type 2, uncontrolled; history of Will disease, status post surgical correction; suspected peptic ulcer disease , but not confirmed with endoscopy, who presented with epigastric pain for a little over a week. She admits to decrease in appetite. The pain is sharp in nature, very different than the previous episode of pain she had in 2014, which was attributed symptomatically to peptic ulcer disease. She states the pain is worse when walking, eating, drinking, or moving. The pain is better if she moves her bowels. She states that her appetite has been poor and she has lost 20 pounds in the last 10 days. Over the last week, she has had significant straining and incomplete evacuation. She has been so constipated, she has had to use an enema. She denies any black or blood in the stool. Denies any chest pain or dyspnea. She has had multiple ER visits without a clear diagnosis and relief. She denies any worsening anxiety or stress. She is unclear if she has a history of anemia. She is only taking metformin, but understands that her diabetes is quite uncontrolled. Denies any skin rash. She has a small lesion on her right hand that she is not sure where it is from. Denies any dysphagia or odynophagia. Denies any NSAID use. Remainder of the 14-point review of systems is grossly negative. PAST MEDICAL HISTORY: Diabetes type 2, uncontrolled, she states her previous A1c was around 11; history of Julia disease with multiple surgeries of her left leg as a child; questionable history of abdominal pain in the past that was treated with PPI in 2014 and resolved. PAST SURGICAL HISTORY: Six surgeries to her left leg. HOME MEDICATIONS: Include: 1. Metformin. 2. Omeprazole daily. ALLERGIES: No known drug allergies. FAMILY HISTORY: No family history of GI cancer or IBD. SOCIAL HISTORY: Denies any tobacco smoking or drugs. She is a student at [employer]. REVIEW OF SYSTEMS: Remainder of the 14-point review of systems is grossly negative. PHYSICAL EXAM: Vital Signs: Blood pressure is 138/84, pulse 94, respiratory rate 16, she is 99% on room air, T-max is 98.5. In general, alert and oriented x3, in no acute distress. HEENT: Atraumatic, normocephalic. Pupils equal, round, reactive to light. Extraocular movements are intact. Conjunctivae are pink. Sclerae are anicteric. Neck: Supple. No palpable adenopathy. Cardiovascular: Regular rate and rhythm. S1, S2. Respiratory: Grossly clear to auscultation, but slightly diminished at the base. Abdomen: Obese morbidly , soft. Mild tenderness to palpation in the epigastrium. Bowel sounds positive. No guarding or rebound. Extremities: No clubbing, no cyanosis, no edema. Psych: Slightly blunted affect, but appropriate. Neuro: Nonfocal. Skin: Slight circumferential lesion on the right hand. DIAGNOSTIC STUDIES/LAB DATA: Hemoglobin 10.8, MCV 68, RDW 19, platelet count 234. BUN is 8, creatinine 0.66. Iron is less than 20, TIBC is 325, percent saturation is 6, transferrin is 232, ferritin is 26. AST is 10, ALT is 8. CRP 87. Beta hCG negative. Urine was positive for 1+ leukocyte esterase, 2+ protein and ketones. She had a CT of the abdomen and pelvis on 11/26/18. I personally reviewed the images. No acute process was seen, but there is significant stool burden throughout the colon. ASSESSMENT AND PLAN: This is a 18-year-old female with relatively new onset abdominal pain in the setting of poorly-controlled diabetes mellitus. 1. Epigastric pain. Relatively short onset. Multiple possible etiologies are potentially a play here. Certainly, consideration for peptic ulcer disease is a possibility; however, less likely given lack of NSAID use and concurrent PPI therapy; however, given the consistent pain, we will plan on EGD today to evaluate. I discussed the risks, benefits, and alternatives and she would like to proceed. If no clear etiology is found, given her concurrent constipation and elevated CRP and significant iron-deficiency anemia, we will plan on pursuing colonoscopy the next day. I suspect in terms of her pain, it may be related to her uncontrolled diabetes mellitus. Her previous A1c was indeed 11, this could certainly be gastroparesis. She may benefit from a small trial of Reglan and a gastric emptying study in the future. If Reglan is pursued, we would do no more than 20 days and discuss with the patient the significant extrapyramidal side effects of the drug, which can be permanent. 2. Iron-deficiency anemia, severe. We will plan upper endoscopy to evaluate. If no clear source, colonoscopy would be indicated. If negative, we would pursue PIPE COVERER AND INSULATOR source. In addition given the MCV of 68, it would be worthwhile to do a hemoglobin electrophoresis to determine if there is a deficiency and/or sickle trait or thalassemia a play here. [id number]/[facility] #: [id number] AMRIT
[2018-12-01] MEDS ORDERED: Morphine INJ* 4 MG/ML 1 ML SYRINGE (NEW SYRINGE VERSION) IV ONE (21:38)
--- NOTE | 2018-12-01 22:40 | PRO ---
CC: [facility]. * ESOPHAGOGASTRODUODENOSCOPY REPORT: DATE OF PROCEDURE: 12/01/18 - ROOM #411 INDICATION FOR PROCEDURE: Epigastric pain. PROCEDURE PERFORMED: Complete esophagogastroduodenoscopy with biopsies. MEDICATIONS GIVEN: Include: 1. 25 mg IV Benadryl. 2. 8 mg IV midazolam. 3. 25 mcg IV fentanyl. DESCRIPTION OF PROCEDURE: After the EGD procedure including the risks, benefits , and alternatives with the risks not limited to perforation, surgery, missed lesions, and/or were explained to the patient. Written informed consent was obtained. IV medication was given and a bite-block was placed between the teeth. The adult Olympus gastroscope was then entered into the patient's oropharynx, into the tubular esophagus. The tubular esophagus was grossly normal in appearance with an intact Z-line. There was no narrowing or erosions. The scope was then advanced to the lower esophageal sphincter into the stomach. There was some mild diffuse gastropathy. A biopsy was taken. No distinct ulcer was appreciated on antegrade or retroflex views. However, the exam was slightly brief secondary to poor tolerance to the moderate sedation. No fresh or old blood was seen throughout the exam. The scope was advanced through the widely patent pylorus into the duodenal bulb, C-loop, and distal duodenum. These were normal in appearance. The scope was then removed from the patient. She tolerated the procedure well. She returned to the recovery room in stable condition. IMPRESSION: 1. Complete esophagogastroduodenoscopy with biopsies. 2. Mild gastropathy. 3. Otherwise unremarkable esophagogastroduodenoscopy. RECOMMENDATIONS: We will place the patient on PPI therapy for 3 months' time given the stomach irritation and then discontinue. We will avoid NSAIDs at all cost. No clear cause of the patient's abdominal pain was identified today. She does admit to change in her bowel habits with significant constipation over the last week to week and a half. Given the change in bowel habits and her iron deficiency anemia with very low iron stores, we discussed colonoscopy. I discussed the risks, benefits and alternatives and she would like to proceed. If that does not yield a solution, I suspect that this may be related to a diabetic gastroparesis. We recommend an eventual outpatient gastric emptying study and could consider a trial of Reglan. We would give no more than 20 days of 5 mg b.i.d. Ideally, she needs to get aggressive control of her sugar. She should be referred for Endocrinology evaluation given that she reports her last A1c was over 11. [id number]/[facility] #: [id number] AMRIT
[2018-12-02] MEDS: NS 0.9% 1000 ML** 1,000 ML IV SCH ×2 (02:20→12:29)
[2018-12-02] MEDS ORDERED: PEG 3000 GI LAVAGE* 1 GALLON PO ONE (06:00)
[2018-12-02] MEDS: Pantoprazole IV* 40 MG IV SCH (08:25)
[2018-12-02] MEDS: Insulin LISPRO* 1 UNITS UNIT SUBCUT SCH ×3 (08:29→18:33)
[2018-12-02 12:11] LABS: ABS Eosinophils 0.2 10^3/ul (0-0.6); ABS Lymphocytes 1.4 10^3/ul (1.0-4.8); ABS Monocytes 0.3 10^3/ul (0-0.8); ABS Neutrophils 2.3 10^3/ul (1.5-7.7); Eosinophil % 4.1 %; Hematocrit 36 % (35-47); Hemoglobin 11.4 g/dL (12.0-16.0); Lymphocyte % 32.6 %; Mean Corpuscular HGB Conc 32 g/dL (31-36); Mean Corpuscular Hemoglobin 21 pg (27-31); Mean Corpuscular Volume 67 fL (80-97); Mean Platelet Volume 9.1 fL (7.4-10.4); Platelet Count 269 10^3/uL (150-450); Red Blood Count 5.34 10^6 /uL (3.70-4.87); Red Cell Distribution Width 19 % (10-15); White Blood Count 4.2 10^3/uL (3.5-10.8)
[2018-12-02] MEDS ORDERED: Midazolam* 1 MG/ML 10 ML VIAL (10 MG) ONE (14:28)
[2018-12-02] MEDS ORDERED: fentaNYL* 50 MCG/ML 2 ML VIAL (100 MCG VIAL) ONE (14:28)
--- NOTE | 2018-12-02 16:00 | PN ---
Progress Note - Progress Note Date of Service: 12/02/18 Note: GI Brief COlonoscopy Note Normal to Terminal Ileum x10cm Internal Hemorrhoids. Good prep. Rec: Patient feels better after prep. Would start miralax daily. Should follow up with [facility]. Also discharge on pantoprazole 40mg PO daily x 3 months. If pain returns would get gastric emptying study. Aly Sol DO 12/02/18 1600
[2018-12-02 19:33] VITALS: BP 133/71
--- NOTE | 2018-12-02 23:06 | PRO ---
CC: [facility] COLONOSCOPY REPORT: DATE OF PROCEDURE: 12/02/18 PROCEDURE PERFORMED: Colonoscopy. INDICATION FOR PROCEDURE: Iron deficiency anemia, constipation, abdominal pain. MEDICATIONS GIVEN: Include: 1. 7 mg IV midazolam. 2. 75 mcg IV fentanyl. DESCRIPTION OF PROCEDURE: After the colonoscopy procedure including the risks, benefits, and alterna tives with the risks not limited to perforation, surgery, missed lesions, and/or were explained to the patient, written informed consent was obtained, IV medication was given, and a rectal exam wa s performed. The rectal exam was unremarkable. The adult Olympus colonoscope was then inserted into the patient's rectum and advanced very carefully through the entirety of the colon into the cecal bas e. Cecal base was carefully inspected and normal in appearance. The terminal ileal valve was identi fied and intubated x4 to 5 cm and normal. The scope was then returned to the cecum. A photograph wa s taken of the cecal cap. The preparation was good over the next 6 minutes. The scope was carefully withdrawn inspecting the mucosa, mucosa was completely normal in appearance. There was no evidence of inflammatory bowel disease or Crohn's. On return to the rectum, direct views were normal. On ret roflexion, grade 1 internal hemorrhoids were appreciated. The scope was then removed from the patien t. She tolerated procedure well. She returned to the recovery room in stable condition. IMPRESSION: 1. Complete colonoscopy to the terminal ileum. 2. Normal colonoscopy. 3. Grade 1 internal hemorrhoids. 4. Good prep. RECOMMENDATIONS: She feels significantly better after the preparation. I suspect that some of her p ain and discomfort may have been from constipation. Would recommend MiraLAX on a daily basis. Given the mild gastritis, she had an upper endoscopy. We will plan on PPI for 3 months' time. Would be c autious and avoid NSAIDs. I do not have an explanation for iron deficiency anemia, I doubt small bow el source at this time. We will have her follow-up with Gynecology. Also would recommend hemoglobin electrophoresis and sickle screen via PMD in the future. If her symptoms return in the future, joe d recommend getting a gastric emptying study to evaluate for gastroparesis given hemoglobin A1c of 11 . Had a long discussion, thus course of action is strict control of her glucose. She needs to follo w up with her primary care physician and then also an central office supervisor for aggressive control of her d iabetes as that is the most significant modifiable risk factor she has currently. In addition, she w ould benefit strongly from some weight loss. I counseled her extensively on this. She may be a good candidate for medically supervised weight loss through the [facility] at some point. We will recommend the primary care physician at [place] consider this in the future. [id number]/[facility] #: [id number]
--- NOTE | 2018-12-03 00:05 | DS ---
CC: Pramod Pruitt [facility]; Dr. Patton; Dr. Recinos * DISCHARGE SUMMARY: DATE OF ADMISSION: 11/30/18 DATE OF DISCHARGE: 12/02/18 PRIMARY CARE PROVIDER: Pramod Wells. OTHER PROVIDERS: Dr. Patton, Dr. Recinos. ATTENDING PHYSICIAN: Dr. Meraz * (dictated by MARY Blanco). PRIMARY DIAGNOSES: 1. Epigastric pain. 2. Uncontrolled diabetes mellitus type 2. SECONDARY DIAGNOSES: 1. Diabetes mellitus type 2. The patient reports last A1c was 11. 2. History of [place] disease with multiple surgeries on left leg. 3. History of peptic ulcer disease, improved with proton pump inhibitors. STUDIES WHILE IN THE HOSPITAL: 1. EGD. Impression: Complete EGD with biopsies. Mild gastropathy. Otherwise , unremarkable EGD. Placed on PPI x3 months and then discontinue. Avoid NSAIDs. No clear cause of abdominal pain identified. The patient does admit to significant constipation over the last week to 10 days. The patient agrees to colonoscopy. If this does not yield solution, I suspect this may be related diabetic gastroparesis. Recommend outpatient evaluation with outpatient gastric emptying study and could consider trial of Reglan, no more than 20 days, 5 mg b.i.d. Recommend aggressive control of sugar. Refer to Endocrinology given last hemoglobin A1c was greater than 11. 2. Colonoscopy. Normal colon. Normal to terminal ileum x10 cm. Internal hemorrhoids. Good prep. The patient's pain improved after prep, suspect constipation. Discharge on MiraLAX, pantoprazole 40 daily x3 months. Follow up with [facility] for anemia, Dr. Patton for diabetes. Do not discharge on Reglan. Gastric emptying study if symptoms continue. DISCHARGE MEDICATIONS: Home medications: 1. Metformin 850 mg p.o. b.i.d. New home medications: 1. Omeprazole 20 mg p.o. daily x90 days. 2. Polyethylene glycol 17 g p.o. daily p.r.n. constipation. 3. Ferrous sulfate 325 mg p.o. daily. HISTORY OF PRESENT ILLNESS/HOSPITAL COURSE: Ms. Brunson is a 18-year-old female with a past medical history of morbid obesity, uncontrolled diabetes mellitus, history of peptic ulcer disease, who presented to the ER on 11/30/18 with complaints of epigastric pain. For full and complete details, please see the history and physical dictated by Dr. Herbie Mckeon, but in short, the patient presents with these complaints. She also notes decreased appetite, worsening pain with eating or drinking, 20-pound weight loss over 10 days, constipation. Gastroenterology consulted on the patient and recommended EGD followed by colonoscopy if EGD is low-yield. Suspicion is that the pain is due to uncontrolled diabetes mellitus and possible diabetic gastroparesis. EGD was performed and revealed mild gastropathy for which 3 months of PPI was recommended with avoidance of NSAIDs. Colonoscopy was then performed and the patient was noted to feel improvement in epigastric pain after colonoscopy prep. Recommendations were then made to start MiraLAX daily and began to continue PPI x3 months. Recommendations for gastric emptying study if pain returns. She will be able to obtain an order for this from primary care provider. Colonoscopy was overall normal. At the time of discharge, the patient reports improvement in pain. She does have occasional mild epigastric pain but notes significant improvement due to mild drowsiness after colonoscopy and sedation. She was offered to stay 1 more night but she has declined and would like to be discharged. While inpatient, the patient was noted to have anemia. Iron studies were obtained and reveals iron deficiency. The patient will be started outpatient on iron. She is also recommended to follow up with Gynecology for further workup of iron deficiency anemia. Ms. Brunson is noted to have uncontrolled diabetes mellitus. She notes that her last hemoglobin A1c was 11. Hemoglobin A1c was ordered while inpatient and is still pending at the time of discharge. She will be discharged on home medications. She will follow up with Dr. Recinos with whom she has an appointment scheduled. At the time of discharge, the patient again is eager to be discharged to home. She was offered to spend the night but would like to be discharged home. She will call an Uber and she notes she lives with a roommate who will help to take care of her. She denies headache, dizziness, lightheadedness, vision changes, chest pain, shortness of breath, cough, fever, or chills. She has mild epigastric pain. She denies nausea, vomiting, or diarrhea. She has had a bowel movement today with her colonoscopy prep which has led to improvement in epigastric pain. She denies myalgias or arthralgias. REVIEW OF SYSTEMS: A 14-point review of systems has been performed and all the pertinent positives and negatives are in the HPI. All other systems are negative. PHYSICAL EXAMINATION: General: Ms. Burnson is a well-developed, well- nourished, obese black female, who is sleeping in bed when I arrive. She wakes easily but is startled. She engages in conversation, is pleasant and cooperative. HEENT: PERRL. EOMI. Nonicteric sclerae. Hearing grossly intact. Oral mucous membranes are mildly dry. There are no lesions. Pharynx is clear. Tongue is at midline. Cardiovascular: Regular rate and rhythm with S1 and S2 present without murmurs, rubs, clicks, or gallops. There is no JVD. There is no peripheral edema. Respiratory: Symmetrical chest expansion without use of accessory muscles. Lungs are clear to auscultation bilaterally without rhonchi, wheezes, or rubs. There is no digital clubbing or cyanosis. Abdomen: Obese. Bowel sounds in all quadrants. The abdomen is soft. There is mild tenderness to palpation at the epigastric area. Otherwise nontender. Musculoskeletal: Full range of motion without pain or deformities. Neuro: The patient is awake. She is alert and oriented x3. Cranial nerves grossly intact. She has steady gait without impairment. DISCHARGE PLAN: Ms. Brunson will be discharged to home. Activity: As tolerated. Diet: ADA. CONDITION: Good. MEDICATIONS: 1. Take MiraLAX daily. 2. Omeprazole 20 mg p.o. daily x3 months. 3. Start ferrous sulfate p.o. daily. 4. Avoid NSAIDs such as ibuprofen, Motrin. EDUCATION: 1. Follow up with [facility] in 4 to 7 days. Office will call with appointment date and time. 2. Follow up with Endocrinology, Dr. Recinos as scheduled to discuss diabetes. 3. Follow up with Gynecology for iron deficiency anemia. 4. If epigastric pain returns, discuss obtaining referral for gastric emptying study from primary care provider . 5. Return to the ER or nearest hospital if you experience any worsening symptoms, chest pain or discomfort, shortness of breath, high fevers, chills, night sweats, dizziness, lightheadedness, loss of consciousness, or any other worrisome signs or symptoms. This is a summarized report of a complex medical history and hospital stay. For further details, please see the entire medical record. TIME SPENT: Approximately 35 minutes was spent on this discharge, greater than half that time was spent [id number] with the patient discussing discharging plans and instructions. MARY BORGES [id number]/[facility] #: [id number] MTDD
== END 2018-12-02 19:30 | disposition home or self-care (01) ==
LOC: ED 16:48 → MED 21:01
PROVIDERS: ADMIT Internal Medicine; ATTEND Internal Medicine
DX: R10.13 Epigastric pain (principal); E11.9 Type 2 diabetes mellitus without complications; K27.9 Peptic ulcer, site unspecified, unspecified as acute or chronic, without hemorrhage or perforation; R63.0 Anorexia; Z87.39 Personal history of other diseases of the musculoskeletal system and connective tissue; Z79.899 Other long term (current) drug therapy
CPT/HCPCS: 36415; 80048; 80053; 81003; 81015; 82607; 82728; 82746; 83036; 83540; 83550; 83605; 83690; 84702; 85025; 86140; 87040; 87077; 87086; 87186; 88305; 88342; 96374; 96375; 99156; 99157; 99284; A9270-GY; G0378; J1200; J1885; J2250; J2270; J3010

== ENCOUNTER 2019-06-02 17:50 | Emergency (ER) | payer OTHER, MEDICAID ==
--- OUTSIDE RECORDS SUMMARY | 2019-06-02 18:14 | XMS REPORT | Continuity of Care Document ---
:2000 External Reference #:[id number] Author Name Miles Patton MD (transmitted by agent of provider Georgette Juarez) Address [address] [place] [address] Care Team Providers Name Role Phone Madison Hein FNPC - Family Care Team Information Semiconductor Development Technician Fariha Gonzalez M.D. - Sports Care Team Information Semiconductor Development Technician Medicine Problems Description No Information Available Social History Type Date Description Comments Sex Unknown ETOH Use Denies alcohol use Tobacco Use Start: Unknown Patient has never smoked Recreational Drug Use Denies Drug Use Smoking Status Reviewed: 04/26/19 Patient has never smoked Exercise Type/Frequency Exercises regularly walk daily to campus, 15-20 minutes x2. Allergies, Adverse Reactions, Alerts Description No Known Drug Allergies Medications Active Medications SIG Qnty Indications Ordering Date Provider Dexcom G6 Semiconductor Development Technician use continuously 1units E11.65 Miles Patton MD 2019 with sensor Device Dexcom G6 Sensor every 10 days, use 3units E11.65 Miles Patton MD 2019 continuously with Misc commercial door installer Dexcom G6 use continuously 1units E11.65 Miles Patton MD 04/26/2019 Transmitter with sensor Misc Ozempic (1 MG/Dose) 1mg injection once 3ml E11.65 Miles Patton MD 2018 weekly, hold on file 2mg/1.5ML Solution for second month Pen-Inject Metformin HCL ER Take 2 Tablets By 60tabs Miles Patton MD 01/17/2019 Mouth AT Bedtime, 750mg Tablets ER 24HR Lantus Solostar Inject 34 Units 9units Miles Patton MD Under Skin once 100Unit/ML Solution daily at night Pen-Inject Vitamin D 1 by mouth once a Unknown 2000Unit day Tablets History Medications Ozempic (0.25 Or 0.5mg weekly by 1.500ml E11.65 Miles Patton MD 2018 - 0.5 MG/Dose) injection 04/26/2019 2mg/1.5ML Solution Pen-Inject Metformin HCL ER 2 tablets by mouth 60tabs Miles Patton MD 01/17/2019 - (Mod) at night 01/17/2019 1000mg Tablets ER 24HR Immunizations Description No Information Available Vital Signs Date Vital Result Comment 04/26/2019 3:44pm Height 70 inches 5'10" Weight 294.00 lb w/ o shoes Heart Rate 96 /min BP Systolic Sitting 128 mmHg BP Diastolic Sitting 84 mmHg BMI (Body Mass Index) 42.2 kg/m2 01/17/2019 7:42am Height 70 inches 5'10" Weight 289.00 lb w/ shoes Heart Rate 110 /min BP Systolic Sitting 139 mmHg BP Diastolic Sitting 98 mmHg BMI (Body Mass Index) 41.5 kg/m2 Results Description No Information Available Procedures Description No Information Available Medical Devices Description No Information Available Encounters Type Date Location Provider Dx Diagnosis Office Visit 01/17/2019 [facility] Miles Patton MD E11.65 Type 2 diabetes 8:00a [facility] [employer] [facility] mellitus with hyperglycemia Z79.84 alf (current) use of oral hypoglycemic drugs Office Visit 12/02/2018 [facility] Loulou R10.13 Epigastric pain 8:30a alejandro Ledezma PA Hospitalists E11.65 Type 2 diabetes mellitus with hyperglycemia Office Visit 11/30/2018 [facility] Miriam Lopez, R10.9 Unspecified 8:29a alejandro Ledezma M.D. 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 Plan of Treatment Future Appointment(s):07/18/2019 3:00 pm - Miles Patton MD at [facility]05/01/2019 8:45 am - Reji Barrientos DO at [facility]04/26/2019 - Miles Patton MDE11.65 Type 2 diabetes mellitus with hyperglycemiaNew Medication:Dexcom G6 Semiconductor Development Technician - use continuously with sensorDexcom G6 Sensor - every 10 days, use continuously with receiverDexcom G6 Transmitter - use continuously with sensorInstructions:1. Continue Lantus 34 units/day for now. 2. Increase Ozempicto 1mg/week for now. 3. We have submitted requests for a Dexcom G6 continuous glucose monitor to [facility]. 4. Return in 3 months for a follow-up visit.Z79.4 alf (current) use of insulin Functional Status Description No Information Available Mental Status Description No Information Available Referrals Description No Information Available
--- NOTE | 2019-06-02 19:52 | ED ---
Respiratory - HPI Summary HPI Summary: 18 year old female presents to the ED with a chief complaint of cough and SOB for the last week. 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 She reports feeling something stuck in her throat. One episode of vomiting 2 days ago. Patient denies fevers, diarrhea, throat pain, and inability to eat/drink. PMHx of DM. - History of Current Complaint Chief Complaint: EDUpperRespComplaint Stated Complaint: COUGH/SOB PER PT Time Seen by Provider: 06/02/19 19:23 Hx Obtained From: Patient Onset/Duration: Gradual Onset, Lasting Days, Still Present Timing: Constant Pain Intensity: 0 Character: Cough (Nonproductive), Dyspnea at Rest Sputum Amount: None Associated Signs and Symptoms: SOB - Allergy/Home Medications Allergies/Adverse Reactions: Allergies Allergy/AdvReac Type Severity Reaction Status Date / Time No Known Allergies Allergy Verified 06/02/19 20:32 Home Medications: Home Medications metFORMIN* [Glucophage 850 MG TAB *] 850 mg PO BID 11/30/18 [History Confirmed 06/02/19] Ferrous Sulfate TAB* 325 mg PO DAILY #30 tab 12/02/18 [Rx Confirmed 06/02/19] Omeprazole 20 mg PO DAILY 90 Days #30 capsule. 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 Sensory History: Reports: Hx Contacts or Glasses Denies: Hx Eye Prosthesis, Hx Legally Blind, Hx Deafness, Hx Hearing Aid Opthamlomology History: Reports: Hx Contacts or Glasses Denies: Hx Eye Prosthesis, Hx Legally Blind Neurological History: Denies: Hx Dementia - Surgical History Surgery Procedure, Year, and Place: left leg surgery x6 Infectious Disease History: No Infectious Disease History: Denies: Traveled Outside the [place] in Last 30 Days - Family History Known Family History: Positive: Hypertension, Diabetes Negative: Cardiac Disease - Social History Alcohol Use: None Hx Substance Use: No Substance Use Type: Reports: None Hx Tobacco Use: No Smoking Status (MU): Never Smoked Tobacco Review of Systems Negative: Fever Negative: Sore Throat Positive: Shortness Of Breath, Cough Positive: Vomiting. Negative: Diarrhea All Other Systems Reviewed And Are Negative: Yes Physical Exam - Summary Physical Exam Summary: Constitutional: Well-developed, Well-nourished, Alert. (-) Distressed Skin: Warm, Dry HENT: Normocephalic; Atraumatic Eyes: Conjunctiva normal Neck: Musculoskeletal ROM normal neck. (-) JVD, (-) Stridor, (-) Tracheal deviation Cardio: Rhythm regular, rate normal, Heart sounds normal; Intact distal pulses; The pedal pulses are 2+ and symmetric. Radial pulses are 2+ and symmetric. (-) Murmur Pulmonary/Chest wall: Effort normal. (-) Respiratory distress, (-) Wheezes, (-) Rales Abd: Soft, (-) tenderness, (-) Distension, (-) Guarding, (-) Rebound Musculoskeletal: (-) Edema Lymph: (-) Cervical adenopathy Neuro: Alert, Oriented x3 Psych: Mood and affect Normal Triage Information Reviewed: Yes Vital Signs On Initial Exam: Initial Vitals Temp Pulse Resp BP Pulse Ox 96.1 F 100 16 122/78 99 06/02/19 17:55 06/02/19 17:55 06/02/19 17:55 06/02/19 17:55 06/02/19 17:55 Vital Signs Reviewed: Yes Procedures - Sedation Patient Received Moderate/Deep Sedation with Procedure: No Diagnostics - Vital Signs Vital Signs Temp Pulse Resp BP Pulse Ox 06/02/19 17:55 96.1 F 100 16 122/78 99 - Laboratory Lab Statement: Any lab studies that have been ordered have been reviewed, and results considered in the medical decision making process. - Radiology CXR Radiology Interpretation Completed By: ED Physician Summary of Radiographic Findings: No acute disease. An ED physician has reviewed this XR. Pending official read. Disposition - Course Course Of Treatment: 18 year old female presents to the ED with a chief complaint of cough and SOB for the last week. 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 She reports feeling something stuck in her throat. One episode of vomiting 2 days ago. Patient denies fevers, diarrhea, throat pain, and inability to eat/drink. PMHx of DM. Physical exam is normal. Chest XR reveals no acute disease. Influenza A and B rapid tests returned negative. Pending COVID -19 test findings. Diagnosis is URI. Patient will be discharged home with instructions to self-quarantine until COVID-19 test returns. Patient should follow up with PCP in 3-5 days. She understands and agrees with this plan. - Diagnoses Provider Diagnoses: URI (upper respiratory infection) Discharge ED - Sign-Out/Discharge Documenting (check all that apply): Patient Departure - discharge home - Discharge Plan Condition: Stable Disposition: HOME Patient Education Materials: Upper Respiratory Infection (ED) Forms: COVID-19 Tested & Isolation Referrals: [facility] [Outside] [facility] - [facility]meka RAMOS [[employer], APPLICATION, OTHER] - Additional Instructions: Follow up with [facility] or [facility] in 3-5 days. Return to the ED if you experience new or worsened symptoms. - Billing Disposition and Condition Condition: STABLE Disposition: Home - Attestation Statements Document Initiated by Scribe: Yes Documenting Scribe: Raffy Benavides Provider For Whom Scribe is Documenting (Include Credential): Benjamín Holt DO Scribjaci Attestation: Raffy Jean scribed for Benjamín Holt DO on 06/03/19 at 0000. Scribe Documentation Reviewed: Yes Provider Attestation: The documentation as recorded by the binaibRaffy beatty accurately reflects the service I personally performed and the decisions made by Benjamín alarcon DO Status of Scribe Document: Viewed
[2019-06-02 20:51] LABS: Influenza A Molecular Negative (Negative); Influenza B Molecular Negative (Negative)
[2019-06-02 21:31] VITALS: BP 120/66
== END 2019-06-02 21:30 | disposition home or self-care (01) ==
LOC: ED 17:50
DX: J06.9 Acute upper respiratory infection, unspecified (principal); R05 Cough; R06.02 Shortness of breath; E11.9 Type 2 diabetes mellitus without complications; Z79.84 Long term (current) use of oral hypoglycemic drugs; Z79.899 Other long term (current) drug therapy; R11.10 Vomiting, unspecified; Z20.828 Contact with and (suspected) exposure to other viral communicable diseases
CPT/HCPCS: 71045; 99282; U0002